=== PATIENT | female | born 1955 | race Caucasian/White ===

== ENCOUNTER → 2017-08-11 | Outpatient (CLI) | payer OTHER ==
[~2017-08-11] MED LIST: GADOBUTROL 10 ML VIAL IVP ONE
== END ==
LOC: FIMAGING 09:36
PROVIDERS: ATTEND Otolaryngology
DX: R20.0 Anesthesia of skin (principal); R29.810 Facial weakness; M50.30 Other cervical disc degeneration, unspecified cervical region
CPT/HCPCS: 70543; 70553; A9585